=== PATIENT | female | born 1985 | race Caucasian/White ===

== ENCOUNTER 2018-07-18 11:04 | Emergency (ER) | payer OTHER ==
[2018-07-18 15:07] LABS: ABS Basophils 0 10^3/ul (0-0.2); ABS Eosinophils 0.1 10^3/ul (0-0.6); ABS Lymphocytes 2.8 10^3/ul (1.0-4.8); ABS Monocytes 0.4 10^3/ul (0-0.8); ABS Neutrophils 1.9 10^3/ul (1.5-7.7); ABS Nucleated RBC 0 10^3/ul; Eosinophil % 2.3 % (0-6); Hematocrit 46 % (35-47); Hemoglobin 15.7 g/dl (12.0-16.0); Lymphocyte % 53.4 % (25-47); Mean Corpuscular HGB Conc 34 g/dl (31-36); Mean Corpuscular Hemoglobin 29 pg (27-31); Mean Corpuscular Volume 87 fL (80-97); Mean Platelet Volume 8.5 um3 (7.4-10.4); Nucleated Red Blood Cells % 0.1; Platelet Count 249 10^3/ul (150-450); Red Blood Count 5.34 10^6/ul (4.00-5.40); Red Cell Distribution Width 14 % (10.5-15); White Blood Count 5.3 10^3/ul (3.5-10.8)
[2018-07-18 15:10] LABS: Urine Appearance Cloudy; Urine Blood Negative (Negative); Urine Ketones Negative (Negative); Urine Protein Negative (Negative); Urine Specific Gravity 1.011 (1.010-1.030); Urine Urobilinogen Negative (Negative)
[2018-07-18 15:18] LABS: Urine Color Yellow
[2018-07-18 15:27] LABS: EGFR Non-African American 85.5 (>60)
[2018-07-18] MEDS ORDERED: Ondansetron INJ* 2 MG/ML VIAL IV ONE (16:01)
[2018-07-18] MEDS ORDERED: NS 0.9% 1000 ML* 1,000 ML IV ONE (16:01)
--- NOTE | 2018-07-18 16:53 | ED ---
Abdominal Pain/Female - HPI Summary HPI Summary: The pt is a 32 year old female presenting to the ED with a chief complaint of abdominal pain located behind her belly button since yesterday and it has not gone away. She has a hx of uterine fibroids and sometimes has discomfort, but this was more than usual. The pt reports she also had trouble urinating when she felt that she needed to go, and was also having bowel movements normally. When she walks, she gets nauseous and the pain increases. The pt denies fevers, sweats, chills, nausea, and a hx of ovarian cysts. The pt drinks red wine occasionally. The pt does not smoke and has never had surgery. - History of Current Complaint Chief Complaint: EDAbdPain Stated Complaint: ABD PAIN Time Seen by Provider: 07/18/18 15:30 Hx Obtained From: Patient Onset/Duration: Gradual Onset, Lasting Days, Still Present Timing: Constant Severity Initially: Mild Severity Currently: Mild Pain Intensity: 3 Pain Scale Used: 0-10 Numeric Location: Suprapubic Radiates: No Associated Signs and Symptoms: Positive: Urinary Symptoms - urgency, trouble urinating,, Nausea - upon exertion. Negative: Diaphoresis, Fever Allergies/Adverse Reactions: Allergies Allergy/AdvReac Type Severity Reaction Status Date / Time No Known Allergies Allergy Verified 07/18/18 11:11 PMH/Surg Hx/FS Hx/Imm Hx Previously Healthy: No History: Reports: Other Problems/Disorders - hx of uterine fibroids Sensory History: Denies: Hx Deafness - Immunization History Immunizations Up to Date: Yes Infectious Disease History: No Infectious Disease History: Reports: Traveled Outside the [place] in Last 30 Days - [place] - Family History Known Family History: Negative: Hypertension - Social History Alcohol Use: Occasionally Substance Use Type: Reports: None Smoking Status (MU): Never Smoked Tobacco Review of Systems Negative: Fever, Chills, Skin Diaphoresis Negative: Erythema Negative: Sore Throat Negative: Chest Pain Negative: Shortness Of Breath, Cough Positive: Abdominal Pain - periumbilical , Nausea - upon exertion. Negative: Vomiting Positive: urgency, other - trouble getting urine to come out. Negative: dysuria , hematuria Negative: Arthralgia, Myalgia Negative: Rash Neurological: Negative - dizziness All Other Systems Reviewed And Are Negative: Yes Physical Exam - Summary Physical Exam Summary: Constitutional: Well-developed, Well-nourished, Alert. (-) Distressed Skin: Warm, Dry HENT: Normocephalic; Atraumatic Eyes: Conjunctiva normal Neck: Musculoskeletal ROM normal neck. (-) JVD, (-) Stridor, (-) Tracheal deviation Cardio: Rhythm regular, rate normal, Heart sounds normal; Intact distal pulses; The pedal pulses are 2+ and symmetric. Radial pulses are 2+ and symmetric. (-) Murmur Pulmonary/Chest wall: Effort normal. (-) Respiratory distress, (-) Wheezes, (-) Rales Abd: Soft, (-) epigastric tenderness, (-) Distension, (-) Guarding, (-) Rebound , (+) suprapubic tenderness, (+) RLQ tenderness Musculoskeletal: (-) Edema Lymph: (-) Cervical adenopathy Neuro: Alert, Oriented x3 Psych: Mood and affect Normal Triage Information Reviewed: Yes Vital Signs On Initial Exam: Initial Vitals Temp Pulse Resp BP Pulse Ox 98.1 F 77 15 140/78 100 07/18/18 11:08 07/18/18 11:08 07/18/18 11:08 07/18/18 11:08 07/18/18 11:08 Vital Signs Reviewed: Yes Diagnostics - Vital Signs Vital Signs Temp Pulse Resp BP Pulse Ox 07/18/18 15:44 70 113/70 97 07/18/18 15:43 75 98 07/18/18 13:44 99.1 F 12 119/69 07/18/18 11:08 98.1 F 77 15 140/78 100 - Laboratory Lab Results: Lab Results 07/18/18 07/18/18 07/18/18 Range/Units 14:53 14:53 14:53 WBC 5.3 (3.5-10.8) 10^3/ul RBC 5.34 (4.00-5.40) 10^6/ul Hgb 15.7 (12.0-16.0) g/dl Hct 46 (35-47) % MCV 87 (80-97) fL MCH 29 (27-31) pg MCHC 34 (31-36) g/dl RDW 14 (10.5-15) % Plt Count 249 (150-450) 10^3/ul MPV 8.5 (7.4-10.4) um3 Neut % (Auto) 35.7 L (38-83) % Lymph % (Auto) 53.4 H (25-47) % Henderson % (Auto) 8.0 H (0-7) % Eos % (Auto) 2.3 (0-6) % Baso % (Auto) 0.6 (0-2) % Absolute Neuts (auto) 1.9 (1.5-7.7) 10^3/ul Absolute Lymphs (auto) 2.8 (1.0-4.8) 10^3/ul Absolute Monos (auto) 0.4 (0-0.8) 10^3/ul Absolute Eos (auto) 0.1 (0-0.6) 10^3/ul Absolute Basos (auto) 0 (0-0.2) 10^3/ul Absolute Nucleated RBC 0 10^3/ul Nucleated RBC % 0.1 Sodium 140 (135-145) mmol/L Potassium 3.8 (3.5-5.0) mmol/L Chloride 102 (101-111) mmol/L Carbon Dioxide 29 (22-32) mmol/L Anion Gap 9 (2-11) mmol/L BUN 9 (6-24) mg/dL Creatinine 0.79 (0.51-0.95) mg/dL Est GFR ( Amer) 103.4 (>60) Est GFR (Non-Af Amer) 85.5 (>60) BUN/Creatinine Ratio 11.4 (8-20) Glucose 88 (70-100) mg/dL Lactic Acid (0.5-2.0) mmol/L Calcium 9.7 (8.6-10.3) mg/dL Total Bilirubin 0.40 (0.2-1.0) mg/dL AST 21 (13-39) U/L ALT 15 (7-52) U/L Alkaline Phosphatase 41 (34-104) U/L C-Reactive Protein 1.05 (<8.01) mg/L Total Protein 8.6 (6.4-8.9) g/dL Albumin 5.0 (3.2-5.2) g/dL Globulin 3.6 (2-4) g/dL Albumin/Globulin Ratio 1.4 (1-3) Amylase 29 (29-103) U/L Lipase 35 (11.0-82.0) U/L Beta HCG, Quant < 0.60 mIU/mL Urine Color Yellow Urine Appearance Cloudy Urine pH 7.0 (5-9) Ur Specific [place] 1.011 (1.010-1.030) Urine Protein Negative (Negative) Urine Ketones Negative (Negative) Urine Blood Negative (Negative) Urine Nitrate Negative (Negative) Urine Bilirubin Negative (Negative) Urine Urobilinogen Negative (Negative) Ur Leukocyte Esterase Negative (Negative) Urine Glucose Negative (Negative) 07/18/18 Range/Units 14:53 WBC (3.5-10.8) 10^3/ul RBC (4.00-5.40) 10^6/ul Hgb (12.0-16.0) g/dl Hct (35-47) % MCV (80-97) fL MCH (27-31) pg MCHC (31-36) g/dl RDW (10.5-15) % Plt Count (150-450) 10^3/ul MPV (7.4-10.4) um3 Neut % (Auto) (38-83) % Lymph % (Auto) (25-47) % Henderson % (Auto) (0-7) % Eos % (Auto) (0-6) % Baso % (Auto) (0-2) % Absolute Neuts (auto) (1.5-7.7) 10^3/ul Absolute Lymphs (auto) (1.0-4.8) 10^3/ul Absolute Monos (auto) (0-0.8) 10^3/ul Absolute Eos (auto) (0-0.6) 10^3/ul Absolute Basos (auto) (0-0.2) 10^3/ul Absolute Nucleated RBC 10^3/ul Nucleated RBC % Sodium (135-145) mmol/L Potassium (3.5-5.0) mmol/L Chloride (101-111) mmol/L Carbon Dioxide (22-32) mmol/L Anion Gap (2-11) mmol/L BUN (6-24) mg/dL Creatinine (0.51-0.95) mg/dL Est GFR ( Amer) (>60) Est GFR (Non-Af Amer) (>60) BUN/Creatinine Ratio (8-20) Glucose (70-100) mg/dL Lactic Acid 0.6 (0.5-2.0) mmol/L Calcium (8.6-10.3) mg/dL Total Bilirubin (0.2-1.0) mg/dL AST (13-39) U/L ALT (7-52) U/L Alkaline Phosphatase (34-104) U/L C-Reactive Protein (<8.01) mg/L Total Protein (6.4-8.9) g/dL Albumin (3.2-5.2) g/dL Globulin (2-4) g/dL Albumin/Globulin Ratio (1-3) Amylase (29-103) U/L Lipase (11.0-82.0) U/L Beta HCG, Quant mIU/mL Urine Color Urine Appearance Urine pH (5-9) Ur Specific [place] (1.010-1.030) Urine Protein (Negative) Urine Ketones (Negative) Urine Blood (Negative) Urine Nitrate (Negative) Urine Bilirubin (Negative) Urine Urobilinogen (Negative) Ur Leukocyte Esterase (Negative) Urine Glucose (Negative) Result Diagrams: 07/18/18 14:53 07/18/18 14:53 Lab Statement: Any lab studies that have been ordered have been reviewed, and results considered in the medical decision making process. - CT ABD/PELV CT CT Interpretation: Positive (See Comments) - 1. The appendix is unremarkable. 2. There are multiple likely intramural uterine fibroids, the largest measuring a maximum of 9.3 cm. 3. No other acute CT pathology. CT Interpretation Completed By: Radiologist - ED physician has reviewed this report. - Ultrasound No standard instances Ultrasound Interpretation: Positive (See Comments) - Transvaginal US - Enlarged myomatous uterus with multiple fibroids which appear to be larger than on previous exam of October 05, 2017. IUD appears to BE in appropriate location. No adnexal masses are noted. Ultrasound Interpretation Completed By: Radiologist - ED physician has reviewed this report. Abdominal Pain Fem Course/Dx - Course Course Of Treatment: Pt is a 32 year old F with a hx of uterine fibroids presenting with periumbilical abd pain. The pain comes normally but it is worse this time. The pt's abd pain migrates from periumbilical to RLQ. - Diagnoses Provider Diagnoses: RLQ abdominal pain, Uterine fibroid Discharge - Sign-Out/Discharge Documenting (check all that apply): Patient Departure - Discharge Plan Condition: Stable Disposition: HOME Prescriptions: traMADol TAB* [Ultram*] 50 mg PO Q6H PRN #10 tab MDD 4 PRN Reason: Pain - Moderate To Severe Referrals: [facility] - Tenzin MAN [Primary Care Provider] - - Attestation Statements Document Initiated by Scribe: Yes Documenting Scribe: Kristine Lawson Provider For Whom Scribe is Documenting (Include Credential): Jeff Genao MD. Scribe Attestation: Kristine Bill, scribed for Jeff Genao MD. on 07/18/18 at 1928.
[2018-07-18] MEDS ORDERED: Iohexol 300* (CONTRAST) 10 ML SDV IV ONE (17:27)
--- NOTE | 2018-07-18 17:46 | RAD ---
Indication: Lower abdominal pain. Real-time sonography of the pelvis was performed. The uterus measures 12.2 11.0 x 13.2 cm with multiple fibroids in the uterus. Posterior fundal fibroid measures 8.5 x 7.1 x 9.4 cm. Left posterior body fibroid measures 9.0 x 8.1 x 8.3 cm. Anterior right body fibroid measures 5.4 x 4.5 x 5.2 cm. Mid anterior body fibroid measures up to 2.8 x 2.0 x 2.8 cm. These fibroids appear to be larger than on prior exam of September 25, 2017. Endometrial echo measures 12 mm. IUD appears to BE in appropriate location. Right ovary measures 3.6 x 2.0 x 3.4 cm. Left ovary measures 3.3 x 3.0 x 2.8 cm. Doppler interrogation demonstrates flow in both ovaries. Minimal fluid is noted in the cul-de-sac. IMPRESSION: Enlarged myomatous uterus with multiple fibroids which appear to be larger than on previous exam of October 05, 2017. IUD appears to BE in appropriate location. No adnexal masses are noted.
--- NOTE | 2018-07-18 19:17 | RAD ---
EXAM: CT Abdomen and Pelvis With Intravenous Contrast CLINICAL HISTORY: 32 years old, female; Pain; Abdominal pain; Patient HX: HX uterine fibroids; Additional info: Rlq pain TECHNIQUE: Axial computed tomography images of the abdomen and pelvis with intravenous contrast. All CT scans at this facility use at least one of these dose optimization techniques: automated exposure control; mA and/or kV adjustment per patient size (includes targeted exams where dose is matched to clinical indication); or iterative reconstruction. Coronal and sagittal reformatted images were created and reviewed. CONTRAST: 115 mL of OMNI 300 administered intravenously. COMPARISON: PEL/TRANS US PELVIS/TRANSVAG 10/05/2017 1:50 PM FINDINGS: Lung bases: There is mild bibasilar atelectatic change. ABDOMEN: Liver: There is hepatomegaly. Gallbladder and bile ducts: Unremarkable. No calcified stones. No ductal dilation. Pancreas: Unremarkable. No mass. No ductal dilation. Spleen: There is mild splenomegaly. Adrenals: Unremarkable. No mass. Kidneys and ureters: Unremarkable. No solid mass. No hydronephrosis. Stomach and bowel: Unremarkable. No obstruction. No mucosal thickening. PELVIS: Appendix: The appendix is unremarkable. The appendix is seen best on coronal image 37 and sagittal image 47. Bladder: Unremarkable. No mass. Reproductive: There are multiple likely intramural uterine fibroids, the largest measuring a maximum of 9.3 cm. An IUD is centrally position in the uterus. ABDOMEN and PELVIS: Intraperitoneal space: Unremarkable. No free air. No significant fluid collection. Bones/joints: No acute fracture. No dislocation. Soft tissues: Unremarkable. Vasculature: Unremarkable. No abdominal aortic aneurysm. Lymph nodes: Unremarkable. No enlarged lymph nodes. IMPRESSION: 1. The appendix is unremarkable. 2. There are multiple likely intramural uterine fibroids, the largest measuring a maximum of 9.3 cm. 3. No other acute CT pathology.
[2018-07-18 20:45] VITALS: BP 105/79
== END 2018-07-18 20:45 | disposition home or self-care (01) ==
LOC: ED 11:04
DX: R10.31 Right lower quadrant pain (principal); D25.9 Leiomyoma of uterus, unspecified; R11.0 Nausea
CPT/HCPCS: 36415; 74177; 76830; 80053; 81003; 82150; 83605; 83690; 84702; 85025; 86140; 96374; 99283; J2405; Q9967

== ENCOUNTER 2018-11-01 15:58 | Emergency (ER) | payer OTHER ==
[2018-11-01 16:09] VITALS: BP 127/50
--- NOTE | 2018-11-01 16:22 | UC ---
Skin Complaint HPI - HPI Summary HPI Summary: 33 yo female presents with fever of around 101F since her myomectomy done 1 week ago. Every day has spiked a fever of around 101F since her surgery. She has noticed some yellow and ?brown drainage from the incision site, but is unsure if it is concerning because it is taped up and she cannot see it well. Does have some cramping in the area, but not much pain. Has been taking ibuprofen which resolves her fever. She called her surgeon and her surgeon's office instructed her to come to the . She also has some sinus congestion. Denies sore throat, cough, SOB, chest pain, n/v, vaginal bleeding, dysuria. - History of Current Complaint Chief Complaint: UCGeneralIllness Time Seen by Provider: 11/01/18 16:17 Stated Complaint: FEVER Hx Obtained From: Patient Onset Severity: Mild Current Severity: Mild Pain Intensity: 3 Pain Scale Used: 0-10 Numeric - Allergy/Home Medications Allergies/Adverse Reactions: Allergies Allergy/AdvReac Type Severity Reaction Status Date / Time No Known Allergies Allergy Verified 11/01/18 16:09 Home Medications: Home Medications Ibuprofen 800 mg PO Q6H PRN 11/01/18 [History Confirmed 11/01/18] PMH/Surg Hx/FS Hx/Imm Hx - Additional Past Medical History Additional PMH: None - Surgical History Surgical History: Yes Surgery Procedure, Year, and Place: Myomectomyh - Family History Known Family History: Negative: Hypertension - Social History Occupation: Employed Full-time Lives: With Family Alcohol Use: Occasionally Substance Use Type: None Smoking Status (MU): Never Smoked Tobacco Review of Systems All Other Systems Reviewed And Are Negative: Yes Constitutional: Positive: Negative Skin: Positive: Other - incision lower abdomen Respiratory: Positive: Negative Cardiovascular: Positive: Negative Gastrointestinal: Positive: Abdominal Pain Genitourinary: Positive: Negative Neurovascular: Positive: Negative Neurological: Positive: Negative Psychological: Positive: Negative Physical Exam - Summary Physical Exam Summary: GENERAL: NAD. WDWN. No pain distress. SKIN: Lower abdominal surgical incision: Appears to have scant yellow/brown drainage. No erythema, warmth, or significant tenderness. HEENT: Head: AT/NC Eyes: EOM intact. Conjunctiva clear without inflammation or discharge. Ears: Hearing grossly normal. TMs intact, no bulging, erythema, or edema. Nose: Nasal mucosa pink and moist. NTTP maxillary and frontal sinus. Throat: Posterior oropharynx without exudates, erythema, or tonsillar enlargement. Uvula midline. NECK: Supple. Nontender. No lymphadenopathy. CHEST: CTAB. No r/r/w. No accessory muscle use. Breathing comfortably and in no distress. CV: RRR. Without m/r/g. Pulses intact. Cap refill <2seconds NEURO: Alert. PSYCH: Age appropriate behavior. Triage Information Reviewed: Yes Vital Signs: Initial Vital Signs Temp 98.3 F 11/01/18 16:03 Pulse 96 11/01/18 16:03 Resp 19 11/01/18 16:03 BP 127/50 11/01/18 16:03 Pulse Ox 98 11/01/18 16:03 Laboratory Tests 11/01/18 11/01/18 11/01/18 16:44 16:45 16:47 POC Urine Color Yellow POC Urine Clarity Clear POC Urine pH 6.5 POC Ur Specif [place] 1.015 POC Urine Protein Negative POC Ur Glucose (UA) Negative POC Urine Ketones Negative POC Urine Blood Negative POC Urine Nitrite Negative POC Urine Bilirubin Negative POC Urine Urobilinogen 0.2 POC U Leukocyte Esteras Negative Influenza A (Rapid) Negative Influenza B (Rapid) Negative Group A Strep Rapid Negative Vital Signs Reviewed: Yes Course/Dx - Course Course Of Treatment: Discussed case with Dr. Parker who also evaluated the pt. Her UA, flu, and strep were negative. I do not appreciate any exam findings for PNA. Given a negative work up here and recent abdominal surgery with daily fevers - advised pt to go to the ER for further evaluation to likely include blood work. 16:35 - pt seen and evaluated. Agreed with SALVADOR Juarez. Questions per pt answered to the best of my ability. - Diagnoses Provider Diagnosis: Fever Discharge - Sign-Out/Discharge Documenting (check all that apply): Patient Departure All imaging exams completed and their final reports reviewed: No Studies - Discharge Plan Condition: Stable Disposition: HOME-RECOMMEND TO ED Referrals: [facility] - Tenzin MAN [Primary Care Provider] - Additional Instructions: All of your testing was negative in the clinic. Please go to the ER for further evaluation of your fever after open abdominal surgery - Billing Disposition and Condition Condition: STABLE Disposition: Home-Recommend to ED
== END 2018-11-01 17:05 | disposition home health service (06) ==
LOC: UCEAST 15:58
DX: R50.9 Fever, unspecified (principal)
CPT/HCPCS: 81003; 87651; 99211; G0463

== ENCOUNTER 2018-11-03 08:23 | Emergency (ER) | payer OTHER ==
--- NOTE | 2018-11-03 08:41 | ED ---
GI/ HPI - HPI Summary HPI Summary: A 33 y/o F presents to ED with c/o dysuria onset yesterday. Associated sx: foul- smelling urine. Pt was seen at [facility] on 11/01 for intermittent fever onset . She had myomectomy at [facility] on 10/25/18 and states there has been some mild bleeding and discharge at the incision site. - History of Current Complaint Chief Complaint: EDUrogenitalProblems Stated Complaint: POSS INFECTION Hx Obtained From: Patient, Family/Lap Layer Onset/Duration: Started Days Ago, Atraumatic, Still Present Severity: Mild Current Severity: Mild Pain Intensity: 3 - out of 10 Associated Signs and Symptoms: Positive: Fever, Dysuria, Other: - pos: fould- smelling urine; mild bleeding and discharge at abd incision site - Allergy/Home Medications Allergies/Adverse Reactions: Allergies Allergy/AdvReac Type Severity Reaction Status Date / Time No Known Allergies Allergy Verified 11/03/18 08:26 PMH/Surg Hx/FS Hx/Imm Hx Previously Healthy: Yes Endocrine/Hematology History: Denies: Hx Diabetes History: Reports: Other Problems/Disorders - hx of uterine fibroids Sensory History: Denies: Hx Deafness - Surgical History Surgery Procedure, Year, and Place: Myomectomyh Infectious Disease History: No Infectious Disease History: Denies: Traveled Outside the [place] in Last 30 Days - Family History Known Family History: Negative: Hypertension - Social History Occupation: Student Lives: With Family Alcohol Use: Occasionally Hx Substance Use: No Substance Use Type: Reports: None Hx Tobacco Use: No Smoking Status (MU): Never Smoked Tobacco Review of Systems Positive: Fever Positive: Other - pos: discharge/mild bleeding at incision site Positive: dysuria, other - pos: foul-smelling urine All Other Systems Reviewed And Are Negative: Yes Physical Exam - Summary Physical Exam Summary: Appearance: The patient is well-nourished in no acute distress and in no acute pain. Skin: The skin is warm and dry and skin color reflects adequate perfusion. HEENT: The head is normocephalic and atraumatic. The pupils are equal and reactive. The conjunctivae are clear and without drainage. Nares are patent and without drainage. Mouth reveals moist mucous membranes and the throat is without erythema and exudate. The external ears are intact. The ear canals are patent and without drainage. The tympanic membranes are intact. Neck: the neck is supple with full range of motion and non-tender. There are no carotid bruits. There is no neck vein distension. Respiratory: Chest is non-tender. Lungs are clear to auscultation and breath sounds are symmetrical and equal. Cardiovascular: Heart is regular rate and rhythm. There is no murmur or rub auscultated. There is no peripheral edema and pulses are symmetrical and equal. Abdomen: The wound is clean with a small, dried amount of discharge. Abd is tender around the wound especially on Left. There is no fluctuance. There are normal bowel sounds heard in all four quadrants and there is no organomegaly palpated. Musculoskeletal: There is no back tenderness noted. Extremities are non-tender with full range of motion. There is good capillary refill. There is no peripheral edema or calf tenderness elicited. Neurological: Patient is alert and oriented to person, place and time. The patient has symmetrical motor strength in all four extremities. Cranial nerves are grossly intact. Deep tendon reflexes are symmetrical and equal in all four extremities. Psychiatric: The patient has an appropriate affect and does not exhibit any anxiety or depression. Triage Information Reviewed: Yes Vital Signs On Initial Exam: Initial Vitals Temp Pulse Resp BP Pulse Ox 98 F 114 16 125/76 97 11/03/18 08:26 11/03/18 08:26 11/03/18 08:26 11/03/18 08:26 11/03/18 08:26 Vital Signs Reviewed: Yes Diagnostics - Vital Signs Vital Signs Temp Pulse Resp BP Pulse Ox 11/03/18 08:26 98 F 114 16 125/76 97 - Laboratory Result Diagrams: 11/03/18 09:01 11/03/18 09:01 Lab Statement: Any lab studies that have been ordered have been reviewed, and results considered in the medical decision making process. - Ultrasound No standard instances Ultrasound Interpretation Completed By: Radiologist Summary of Ultrasound Findings: REPORT AND IMPRESSION: #. No fluid collection evident along the course of the midline incision site to indicate. abscess or hematoma. #. No hernia visualized along the course of the prior surgical incision. ED provider has reviewed this report. Re-Evaluation - Re-Evaluation 1 Re-Evaluation Time: 12:07 Change: Improved Comment: Pt feeling improved after fluids. GIGU Course/Dx - Course Course Of Treatment: Ms. Paul presented complaining of some dysuria and malodorous urine. About 9 days ago she had surgery at [facility]. Couple days ago she was concerned about some fevers and followed up at the [facility] where they recommended she come here. Urinalysis obtained at that time grew out no bacteria. She doesn't think she's had fever subsequently. Here she was nontoxic in appearance with stable vital signs. Laboratory work was negative and although she was tender around the wound ultrasound revealed no evidence for abscess in the wound in general looked clean. Her UA showed some microscopic hematuria. She has an appointment next week with her surgeon and I recommended she keep it - Diagnoses Provider Diagnoses: Microscopic hematuria Discharge - Sign-Out/Discharge Documenting (check all that apply): Patient Departure - D/C - Discharge Plan Condition: Stable Disposition: HOME Patient Education Materials: Hematuria (ED) Referrals: [facility] - Tenzin MAN [Primary Care Provider] - 3 Days Additional Instructions: Follow up with your [facility] physician as scheduled on 11/12/17. Please return to the ED if you experience new or worsening symptoms. Follow up with your primary care provider in 2-3 days. - Billing Disposition and Condition Condition: STABLE Disposition: Home - Attestation Statements Document Initiated by Mara: Yes Documenting Scribe: Hillary Natarajan Provider For Whom Mara is Documenting (Include Credential): Dr. Jim King MD Scribe Attestation: Hillary Bill scribed for Dr. Jim King MD on 11/03/18 at 1406. Scribe Documentation Reviewed: Yes Provider Attestation: The documentation as recorded by the Hillary roberts accurately reflects the service I personally performed and the decisions made by me, Dr. Jim King MD Status of Scribhan Document: Viewed
[2018-11-03 09:14] LABS: Urine Appearance Clear; Urine Bacteria Absent (Absent); Urine Bilirubin Negative (Negative); Urine Blood 1+ (Negative); Urine Color Amber; Urine Glucose Negative (Negative); Urine Ketones Negative (Negative); Urine Nitrite Negative (Negative); Urine Protein Negative (Negative); Urine Red Blood Cell 1+(3-5/hpf) (Absent); Urine Specific Gravity 1.011 (1.010-1.030); Urine Urobilinogen Negative (Negative); Urine White Blood Cell Trace(0-5/hpf) (Absent)
[2018-11-03 09:24] LABS: ABS Basophils 0 10^3/ul (0-0.2); ABS Eosinophils 0.3 10^3/ul (0-0.6); ABS Lymphocytes 1.9 10^3/ul (1.0-4.8); ABS Monocytes 0.5 10^3/ul (0-0.8); ABS Neutrophils 2.2 10^3/ul (1.5-7.7); ABS Nucleated RBC 0 10^3/ul; Eosinophil % 5.5 %; Hematocrit 37 % (35-47); Hemoglobin 12.3 g/dl (12.0-16.0); Lymphocyte % 38.3 %; Mean Corpuscular HGB Conc 33 g/dl (31-36); Mean Corpuscular Hemoglobin 29 pg (27-31); Mean Corpuscular Volume 86 fL (80-97); Mean Platelet Volume 7.9 fL (7.4-10.4); Nucleated Red Blood Cells % 0; Platelet Count 282 10^3/ul (150-450); Red Cell Distribution Width 13 % (10.5-15); White Blood Count 4.9 10^3/ul (3.5-10.8)
[2018-11-03 09:39] LABS: Albumin/Globulin Ratio 1.3 (1-3); BUN/Creatinine Ratio 16.7 (8-20); C Reactive Protein 18.96 mg/L (<8.01); Calcium 9.2 mg/dL (8.6-10.3); EGFR Non-African American 116.6 (>60); Globulin 3.1 g/dL (2-4); Potassium 3.7 mmol/L (3.5-5.0); Total Bilirubin 0.4 mg/dL (0.2-1.0); Total Protein 7.1 g/dL (6.4-8.9)
[2018-11-03] MEDS ORDERED: NS 0.9% 1000 ML* 1,000 ML IV ONE (10:40)
[2018-11-03 12:18] VITALS: BP 123/70
== END 2018-11-03 12:22 | disposition home or self-care (01) ==
LOC: ED 08:23
DX: R31.29 Other microscopic hematuria (principal); R50.9 Fever, unspecified; R30.0 Dysuria
CPT/HCPCS: 36415; 76705; 80053; 81003; 81015; 83605; 85025; 86140; 87040; 87086; 96360; 99283